=== PATIENT | male | born 1965 | race Caucasian/White ===

== ENCOUNTER 2024-01-17 13:02 | Emergency (ER) | payer BC, SELFPAY ==
[2024-01-17 13:06] VITALS: BP 144/79
--- NOTE | 2024-01-17 13:42 | ED.GENMED ---
History of Present Illness
General
Chief Complaint: Back Pain
Source: patient
Exam Limitations: none
Time Seen by Provider: 01/17/24 13:25
Nursing documentation reviewed up to this point in time: agreed with
History of Present Illness
History of Present Illness:
Patient is a 58-year-old male who presents to the ER for evaluation of low back pain. Patient has had issues with his back pain off and on for the past several years. He reports 2 weeks ago he was playing disc golf and twisted and has had pain
since then. Pain is across lower back and does not radiate. He has been evaluated by Dr. Moy in the past. He has an appointment next week but was unable to wait because of increased pain today. He has been alternate between ibuprofen and
naproxen and took Celebrex this am without relief.
He denies any radiation of pain. Denies any loss of bowel or bladder. Denies any actual trauma.
He denies any associated fever or chills.
Review of Systems
Review of Systems
Allergies reviewed?: Yes
All Other Systems: ROS reviewed and negative except as documented in HPI and ROS
Constitutional: Reports no symptoms
: Denies incontinence
Musculoskeletal: Reports back pain (low back pain )
Skin: Reports no symptoms
Neurological: Reports no symptoms; Denies numbness
Psychiatric: Reports no symptoms
Phy Exam
General Physical Exam
General Presentation: no apparent distress
General age: appears stated age
General Skin: warm and dry
General Habitus: normal
General Mental: alert
General Hydration: appears well hydrated
Neurological Exam
Neurological Exam: alert, oriented x3 and other (Normal distal sensation bilaterally normal dorsiflexion plantarflexion negative straight leg raise positive normal patellar reflexes bilaterally)
Musculoskeletal Exam
Musculoskeletal Exam: other (mild tenderness to right lateral paralumbar region normal inspection no cva tenderness no rash nml inspection )
Skin Exam
Skin Exam: normal color and warm/dry
Psychiatric Exam
Psychiatric Exam: normal mood/affect
Course
Orders/Labs/Results
Orders:
Orders
01/17/24 13:53
Dexamethasone Pf [Decadron] 10 mg PO NOW STA
diazePAM [Valium Injection] 5 mg IM NOW STA
01/17/24 13:54
Acetaminophen [Tylenol] 1,000 mg PO NOW STA
01/17/24 13:59
Lumbar Spine Complete, 4 View [CR Lumbar Spine Comp Min 4 Vw*] Urgent
Comment:
Reason For Exam: low back pain
Vital Signs
Initial and Last Documented VS:
Initial Vital Signs
Temp Pulse Resp BP Pulse Ox
98.1 F 56 16 144/79 98
01/17/24 13:06 01/17/24 13:06 01/17/24 13:06 01/17/24 13:06 01/17/24 13:06
Last Documented Vital Signs
Temp Pulse Resp BP Pulse Ox
98.1 F 56 16 144/79 98
01/17/24 13:06 01/17/24 13:06 01/17/24 13:06 01/17/24 13:06 01/17/24 13:06
MDM/Problems Addressed
Differential Diagnosis Includes:
Not limited to muscle sprain strain possible herniated disc, less likely fracture
MDM/Problems Addressed:
Symptoms are consistent with likely muscular back pain. Patient with no radicular symptoms no bowel or bladder incontinence. Patient injured his back and started with back pain after twisting doing disc golfing. Patient has appointment with
[facility] next week because of pain presented here to the ER. He however presents awake alert no acute distress no obvious findings on lumbar x-ray normal neurological exam patient was given IM Valium 1 dose of Decadron here feeling slight improvement
will DC with Flexeril. Patient does have Celebrex at home discussed to call the office tomorrow for perhaps an earlier appointment otherwise to return if any worsening of symptoms
*Radiology
Radiology exam reviewed: preliminary read by ED provider (no acute findings )
*Pulse Oximetry
Patient hypoxic: no
*Critical Care Note
Total Time (30-74mins, 75-104mins- exclusive of procedures): Not Applicable
ED Attending Note
-
Portions of this chart may have been created with voice recognition software.� Occasional wrong word or��sound alike� substitutions may have occurred due to the inherent limitations of voice recognition software.
Discharge Plan
Departure
Patient Disposition: Home (Routine Discharge)
Date of Disposition: 01/17/24
Time of Disposition: 16:06
Patient with high blood pressure during this ER visit?: Yes
Condition: Fair
Covid-19: Not Applicable
Discharge Problem:
Low back pain
Instructions: Low Back Pain (DC), BLOOD PRESSURE
Prescriptions:
New
cyclobenzaprine 10 mg tablet
10 mg PO TID PRN (Reason: muscle spasm) Qty: 10 0RF
Referrals:
Rob Moy, [Non-Admitting Privileges] -
Niecy Simms MD [Family Provider] -
Activity Restrictions/Additional Instructions:
As discussed you may either take ibuprofen or your Celebrex as previously recommended. In addition you may also take Tylenol. Warm compresses /warm moist heat to affected area. You may take Flexeril which is a muscle laxer which was sent to your
pharmacy. This may cause drowsiness. No driving or drinking alcohol while taking this medication.
Follow-up with Dr. Moy as scheduled call tomorrow to see if there is an earlier appointment available. Return if any worsening of symptoms.
Discharge Date and Time
Print Language: TURKISH
[2024-01-17] MEDS: TYLENOL 1000 MG PO (14:00)
[2024-01-17] MEDS: VALIUM INJECTION 5 MG IM (14:01)
[2024-01-17] MEDS: DECADRON 10 MG PO (14:02)
== END 2024-01-17 16:30 | disposition home or self-care (01) ==
LOC: EMR 13:02
PROVIDERS: EMERGENCY PHYSICIAN Emergency Medicine; FAMILY PHYSICIAN Internal Medicine
DX: M54.50 Low back pain, unspecified (principal); X50.1XXA Overexertion from prolonged static or awkward postures, initial encounter; Y93.89 Activity, other specified; R03.0 Elevated blood-pressure reading, without diagnosis of hypertension; Z88.5 Allergy status to narcotic agent; Z88.0 Allergy status to penicillin
CPT/HCPCS: 99284; 96372; 72110